=== PATIENT | male | born 1965 | race Caucasian/White ===

== ENCOUNTER → 2022-08-01 14:03 | Outpatient (CLI) | payer OTHER, SELFPAY ==
--- NOTE | ~2022-08-01 | CT_ITS ---
EXAMINATION: CT lung screening DATE: 08/01/2022 14:18 INDICATION: Personal history of nicotine dependence. TECHNIQUE: Computed tomography (CT) of the chest was performed without intravenous contrast. The dose -length product was 295.94 mGy-cm. Automated exposure control and iterative reconstruction technique were employed. COMPARISON: None FINDINGS: Heart size normal. No significant pleural or pericardial effusion. There is atherosclerosis of the aorta and coronary arteries. No thoracic lymphadenopathy. Mild thoracic spondylosis. There is scoliosis. There is a 4 mm left lower lobe nodule, image 68. There is a 2 mm left lower lobe nodule. There is 2 mm fissural nodule on the right. There is a 3 mm there is a 3 mm fissural nodule on the r ight, image 88. There is a 2 mm right lower lobe nodule, image 100. IMPRESSION: 1. Lung-RADS category 2: Benign appearance or behavior. Continue annual screening with noncontrast lo w-dose chest CT in 12 months. Reviewed, dictated and finalized at location B. IMPRESSION: 1. Lung-RADS category 2: Benign appearance or behavior. Continue annual screeni ng with noncontrast low-dose chest CT in 12 months.
== END ==
PROVIDERS: PCP Internal Medicine; Visit Provider Internal Medicine
DX: Z12.2 Encounter for screening for malignant neoplasm of respiratory organs (principal); Z87.891 Personal history of nicotine dependence
CPT/HCPCS: 71271